=== PATIENT | male | born 1995 | race Caucasian/White ===

== ENCOUNTER 2017-05-10 09:22 | Emergency (ER) | payer MEDICAID, OTHER ==
[~2017-05-10] VITALS: Ht 188 cm; Wt 95.7 kg
[~2017-05-10 09:22] MED LIST: CIPR250T6 PO
[2017-05-10 09:33] VITALS: BP 117/77
--- NOTE | 2017-05-10 09:39 | NUR ---
Patient ambulated to bed 08.
--- NOTE | 2017-05-10 09:46 | NUR ---
Patient taken to XRAY via wheelchair per tech.
--- NOTE | 2017-05-10 09:49 | NUR ---
PATIENT PRESENTS TO ED WITH c/o nose trauma, crossbar tire iron accidently slipped and hit himself on the nose---swelling, pain, redness, tender x todAY; DENIES N/V/D; SKIN IS PINK/WARM/DRY; AAOX4 WITH EVEN AND STEADY GAIT; LUNGS CLEAR BL; HR EVEN AND REGULAR; PT DENIES ANY FEVER, CP, SOB, OR COUGH AT THIS TIME; PATIENT STATES PAIN OF 5/10 AT THIS TIME;PATIENT POSITIONED FOR COMFORT; HOB ELEVATED; BEDRAILS UP X2; BED DOWN.ALL MONMITORS IN PLACED.
--- NOTE | 2017-05-10 09:55 | NUR ---
PT LYING ON BED;NO ACUTE DISTRESS NOTED;WILL CONTIUE TO MONITOR PT.
[2017-05-10 10:54] VITALS: BP 117/77
== END 2017-05-10 10:52 | disposition home or self-care (01) ==
LOC: MED 09:22
DX: S02.2XXA Fracture of nasal bones, initial encounter for closed fracture (principal); W22.8XXA Striking against or struck by other objects, initial encounter; Y93.89 Activity, other specified; Y92.89 Other specified places as the place of occurrence of the external cause; Y99.8 Other external cause status
CPT/HCPCS: 70160; 99284

== ENCOUNTER 2019-11-12 19:58 | Emergency (ER) | payer OTHER ==
[~2019-11-12] VITALS: Ht 185.4 cm; Wt 91.7 kg
[2019-11-12 20:32] VITALS: BP 142/75
--- NOTE | 2019-11-12 20:44 | NUR ---
AMBULATES TO BED 10 WITH STEADY GAIT. URINE SAMPLE COLLECTED. REPORT GIVEN TO RIAZ JAY.
--- NOTE | 2019-11-12 20:45 | NUR ---
PT AMBULATED TO BED 10.
--- NOTE | 2019-11-12 21:02 | NUR ---
24 Y/O MALE PRESENTS TO ED, C/O ABDOMINAL PAIN 09/09. BS ACTIVE X4 QUADRANTS. ABDOMEN SOFT AND TENDER. PT STATES BEING DX WITH FLU LAST FRIDAY; VISITED CARMEN AND RX MOTRIN AND UNKNOWN FLU MEDICATION. PT C/O N/V/D. 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 PT PLACED ON MONITOR. ERMD AWARE. WILL CONTINUE TO MONITOR.
[2019-11-12] MEDS ORDERED: ONDANSETRON 4 MG ODT PO ONE (21:15)
[2019-11-12 22:00] VITALS: BP 117/82
--- NOTE | 2019-11-12 22:00 | NUR ---
PT DISCHARGED WITH PAPERWORK. RX ZOFRAN, MINERAL OIL. EDUCATED PT REGARDING MEDICATIONS AND S/E. EDUCATED PT REGARDING D/C DIAGNOSIS AND INSTRUCTIONS. PT VERBALIZED UNDERSTANDING OF TEACHING. TOLD PT TO FOLLOW UP WITH PCP AND WHEN TO RETURN TO ED. PT AT STABLE CONDITION. PT DENIES ANY N/V. ALL QUESTIONS ANSWERED.
== END 2019-11-12 22:00 | disposition home or self-care (01) ==
LOC: MED 19:58
DX: R10.84 Generalized abdominal pain (principal); R11.2 Nausea with vomiting, unspecified; Z79.2 Long term (current) use of antibiotics
CPT/HCPCS: 74022; 99283; Q0162

== ENCOUNTER 2022-12-12 10:10 | Emergency (ER) | payer OTHER ==
[~2022-12-12] VITALS: Ht 185.4 cm; Wt 88.9 kg
[2022-12-12 10:22] VITALS: BP 133/70
[2022-12-12] MEDS ORDERED: DEXAMETHASONE 10 MG/ML VIAL IM ONE (11:25)
--- NOTE | 2022-12-12 11:27 | NUR ---
FLU AND COVID SWABS COLLECTED AND SENT TO LAB.
[2022-12-12 12:23] VITALS: BP 133/70
--- NOTE | 2022-12-12 12:23 | NUR ---
Patient discharged with v/s stable. Written and verbal after care instructions given and explained. Patient verbalized understanding. Ambulatory with steady gait. All questions addressed prior to discharge. Advised to follow up with PMD. copy of labs given
== END 2022-12-12 12:23 | disposition home or self-care (01) ==
LOC: MED 10:10
DX: U07.1 COVID-19 (principal); J02.9 Acute pharyngitis, unspecified
CPT/HCPCS: 87426; 87804; 96372; 99283; J1100